=== PATIENT | female | born 1985 | race Caucasian/White ===

== ENCOUNTER 2020-09-11 15:18 | Observation (INO) | payer BC | END 2020-09-11 16:10 | disposition home or self-care (01) | LOC: 4S 15:55 | PROVIDERS: ADMIT Obstetrics & Gynecology; ATTEND Obstetrics & Gynecology | DX: O60.03 Preterm labor without delivery, third trimester (principal); Z3A.29 29 weeks gestation of pregnancy | CPT/HCPCS: 59025; 99219 ==

== ENCOUNTER 2020-10-13 09:15 | Observation (INO) | payer BC ==
[~2020-10-13] VITALS: Ht 162.6 cm; Wt 107.5 kg
[2020-10-13 10:12] LABS: GLUCOMETER DEV NAME(LOC) 4S.; GLUCOSE,POINT OF CARE 136 MG/DL (70-110)
[2020-10-13 10:20] LABS: COVID AG,FIA SOURCE NASOPHARYNGEAL
[2020-10-13 10:33] VITALS: BP 114/57
== END 2020-10-13 10:45 | disposition home or self-care (01) ==
LOC: 4S 09:15
PROVIDERS: ADMIT Obstetrics & Gynecology; ATTEND Obstetrics & Gynecology
DX: O24.419 Gestational diabetes mellitus in pregnancy, unspecified control (principal); Z20.828 Contact with and (suspected) exposure to other viral communicable diseases; Z3A.33 33 weeks gestation of pregnancy
CPT/HCPCS: 59025; 87426; 99219

== ENCOUNTER 2020-10-17 09:36 | Observation (INO) | payer BC ==
[~2020-10-17] VITALS: Ht 167.6 cm; Wt 108.0 kg
[2020-10-17 09:41] VITALS: BP 104/59
[2020-10-17 10:35] LABS: GLUCOMETER DEV NAME(LOC) 4S.; GLUCOSE,POINT OF CARE 181 MG/DL (70-110)
== END 2020-10-17 10:50 | disposition home or self-care (01) ==
LOC: 4S 09:36
PROVIDERS: ADMIT Obstetrics & Gynecology; ATTEND Obstetrics & Gynecology
DX: O24.419 Gestational diabetes mellitus in pregnancy, unspecified control (principal); Z3A.34 34 weeks gestation of pregnancy
CPT/HCPCS: 59025; 99219

== ENCOUNTER 2020-10-20 09:15 | Observation (INO) | payer BC ==
[~2020-10-20] VITALS: Ht 162.6 cm; Wt 108.4 kg
[2020-10-20 09:49] VITALS: BP 103/61
[2020-10-20 10:08] LABS: GLUCOMETER DEV NAME(LOC) 4S.; GLUCOSE,POINT OF CARE 131 MG/DL (70-110)
[2020-10-20 11:43] LABS: COVID AG,FIA SOURCE NASOPHARYNGEAL
== END 2020-10-20 11:00 | disposition home or self-care (01) ==
LOC: 4S 09:15
PROVIDERS: ADMIT Obstetrics & Gynecology; ATTEND Student in an Organized Health Care Education/Training Program
DX: O24.419 Gestational diabetes mellitus in pregnancy, unspecified control (principal); Z20.828 Contact with and (suspected) exposure to other viral communicable diseases; O09.523 Supervision of elderly multigravida, third trimester; Z3A.34 34 weeks gestation of pregnancy
CPT/HCPCS: 59025; 83036; 87426; 99219

== ENCOUNTER 2020-10-24 09:10 | Observation (INO) | payer BC ==
[~2020-10-24] VITALS: Ht 167.6 cm; Wt 108.4 kg
[2020-10-24 09:26] VITALS: BP 108/66
[2020-10-24] MEDS ORDERED: PREN-217 PO (09:34)
[2020-10-24] MEDS ORDERED: METF-960 PO (09:34)
[2020-10-24 09:57] LABS: GLUCOMETER DEV NAME(LOC) 4S.; GLUCOSE,POINT OF CARE 106 MG/DL (70-110)
== END 2020-10-24 10:20 | disposition home or self-care (01) ==
LOC: 4S 09:10
PROVIDERS: ADMIT Obstetrics & Gynecology; ATTEND Obstetrics & Gynecology
DX: O24.419 Gestational diabetes mellitus in pregnancy, unspecified control (principal); O09.523 Supervision of elderly multigravida, third trimester; Z3A.35 35 weeks gestation of pregnancy
CPT/HCPCS: 59025; 99219

== ENCOUNTER 2020-10-27 09:15 | Observation (INO) | payer BC ==
[~2020-10-27] VITALS: Ht 162.6 cm; Wt 108.9 kg
[~2020-10-27 09:15] MED LIST: METF-960 PO; PREN-217 PO
[2020-10-27] MEDS ORDERED: METF-960 PO (09:38)
[2020-10-27 09:40] VITALS: BP 102/55
[2020-10-27 10:21] LABS: GLUCOMETER DEV NAME(LOC) 4S.; GLUCOSE,POINT OF CARE 129 MG/DL (70-110)
[2020-10-27 10:48] LABS: COVID AG,FIA SOURCE NASOPHARYNGEAL
== END 2020-10-27 10:25 | disposition home or self-care (01) ==
LOC: 4S 09:15
PROVIDERS: ADMIT Obstetrics & Gynecology; ATTEND Obstetrics & Gynecology
DX: O09.523 Supervision of elderly multigravida, third trimester (principal); Z20.828 Contact with and (suspected) exposure to other viral communicable diseases; Z3A.35 35 weeks gestation of pregnancy
CPT/HCPCS: 87426; 99219

== ENCOUNTER 2020-10-31 09:10 | Observation (INO) | payer BC ==
[~2020-10-31] VITALS: Ht 167.6 cm; Wt 108.9 kg
[2020-10-31 09:38] VITALS: BP 125/57
[2020-10-31 10:10] LABS: GLUCOMETER DEV NAME(LOC) 4S.; GLUCOSE,POINT OF CARE 96 MG/DL (70-110)
== END 2020-10-31 11:35 | disposition home or self-care (01) ==
LOC: 4S 09:10
PROVIDERS: ADMIT Student in an Organized Health Care Education/Training Program; ATTEND Student in an Organized Health Care Education/Training Program
DX: O24.419 Gestational diabetes mellitus in pregnancy, unspecified control (principal); O09.523 Supervision of elderly multigravida, third trimester; Z3A.36 36 weeks gestation of pregnancy
CPT/HCPCS: 59025; 76811; 99219

== ENCOUNTER 2020-11-04 09:12 | Observation (INO) | payer BC ==
[2020-11-04 09:32] VITALS: BP 115/61
[2020-11-04 10:17] LABS: GLUCOMETER DEV NAME(LOC) 4S.; GLUCOSE,POINT OF CARE 117 MG/DL (70-110)
[2020-11-04 12:18] LABS: COVID AG,FIA SOURCE NASOPHARYNGEAL
== END 2020-11-04 10:20 | disposition home or self-care (01) ==
LOC: 4S 09:12
PROVIDERS: ADMIT Student in an Organized Health Care Education/Training Program; ATTEND Student in an Organized Health Care Education/Training Program
DX: O09.523 Supervision of elderly multigravida, third trimester (principal); Z20.828 Contact with and (suspected) exposure to other viral communicable diseases; Z3A.37 37 weeks gestation of pregnancy
CPT/HCPCS: 59025; 87426; 99219

== ENCOUNTER 2020-11-07 09:04 | Observation (INO) | payer BC ==
[~2020-11-07] VITALS: Ht 165.1 cm; Wt 111.1 kg
[2020-11-07 09:25] VITALS: BP 111/67
[2020-11-07 10:04] LABS: GLUCOMETER DEV NAME(LOC) 4S.; GLUCOSE,POINT OF CARE 110 MG/DL (70-110)
== END 2020-11-07 10:10 | disposition home or self-care (01) ==
LOC: 4S 09:05
PROVIDERS: ADMIT Student in an Organized Health Care Education/Training Program; ATTEND Student in an Organized Health Care Education/Training Program
DX: O24.419 Gestational diabetes mellitus in pregnancy, unspecified control (principal); O09.523 Supervision of elderly multigravida, third trimester; Z3A.37 37 weeks gestation of pregnancy
CPT/HCPCS: 59025; 99219

== ENCOUNTER 2020-11-10 11:15 | Observation (INO) | payer BC ==
[~2020-11-10] VITALS: Ht 165.1 cm; Wt 109.5 kg
[2020-11-10 11:29] VITALS: BP 108/60
[2020-11-10 12:09] LABS: GLUCOMETER DEV NAME(LOC) 4S.; GLUCOSE,POINT OF CARE 120 MG/DL (70-110)
== END 2020-11-10 12:05 | disposition home or self-care (01) ==
LOC: 4S 11:15
PROVIDERS: ADMIT Student in an Organized Health Care Education/Training Program; ATTEND Student in an Organized Health Care Education/Training Program
DX: O24.419 Gestational diabetes mellitus in pregnancy, unspecified control (principal); Z3A.37 37 weeks gestation of pregnancy
CPT/HCPCS: 59025; 99219

== ENCOUNTER 2020-11-14 09:05 | Observation (INO) | payer BC ==
[~2020-11-14] VITALS: Ht 167.6 cm; Wt 110.2 kg
[2020-11-14 09:39] VITALS: BP 115/56
[2020-11-14 10:07] LABS: GLUCOMETER DEV NAME(LOC) 4S.; GLUCOSE,POINT OF CARE 101 MG/DL (70-110)
== END 2020-11-14 10:45 | disposition home or self-care (01) ==
LOC: 4S 09:05
PROVIDERS: ADMIT Student in an Organized Health Care Education/Training Program; ATTEND Student in an Organized Health Care Education/Training Program
DX: O24.419 Gestational diabetes mellitus in pregnancy, unspecified control (principal); Z3A.38 38 weeks gestation of pregnancy
CPT/HCPCS: 59025; 76811; 99219